=== PATIENT | female | born 1995 | race African-American/Black ===

== ENCOUNTER 2018-08-05 17:11 | Emergency (ER) | payer OTHER, SELFPAY ==
[2018-08-05 18:33] LABS: Hemoglobin 10.1 g/dL (12.0-16.0); Mean Corpuscular HGB CONC 28.7 g/dL (32.0-36.0); Mean Corpuscular Hemoglobin 18.9 pg (27.0-31.0); Mean Corpuscular Volume 65.8 fL (78.0-98.0); Mean Platelet Volume 11.2 fL (7.4-10.4); Platelet Count 411 thou/uL (130-400); RBC Distribution Width 17.8 % (11.5-14.5); Red Blood Cell (RBC) Count 5.36 mill/uL (4.20-5.40); White Blood Cell (WBC) Count 11.3 thou/uL (4.8-10.8)
[2018-08-05 18:55] LABS: #Lymphocytes 2.7 thou/uL (1.20-3.40); #Monocytes 0.8 thou/uL (0.11-0.59); #Neutrophils 7.7 thou/uL (1.40-6.50); %Basophils 0.3 % (0.0-1.0); %Eosinophils 0.2 % (0.0-10.0); %Monocytes 7.2 % (0.0-10.0); %Neutrophils 68.3 % (42.0-75.0); Hypochromia SLIGHT = 6-15 cells (100X) (0-5/hpf); MDiff Complete? YES; Microcytosis SLIGHT = 6-15 cells (100X) (0-5/hpf); Ovalocytes SLIGHT = 2-5 cells (100X) (0-1/hpf); Poikilocytosis SLIGHT = 6-15 cells (100X) (0-5/hpf); Schistocytes SLIGHT = 2-5 cells (100X) (0-1/hpf)
[2018-08-05 19:00] LABS: ALT (SGPT) Less than 7 U/L (8-55); AST (SGOT) 13 U/L (5-34); Albumin 4.6 g/dL (3.5-5.0); Alkaline Phosphatase 91 U/L (40-150); Anion Gap 13 mmol/L (10-20); BUN (Urea Nitrogen) 9 mg/dL (7.0-18.7); Bilirubin, Total 0.4 mg/dL (0.2-1.2); Calc. Creatinine Clearance 0 mL/min (70-130); Calcium 9.9 mg/dL (7.8-10.44); Carbon Dioxide 25 mmol/L (22-29); Chloride 102 mmol/L (98-107); Estimated GFR-MDRD Greater than 90; Globulin 4.4 g/dL (2.4-3.5); Glucose 93 mg/dL (70-105); Lipase 17 U/L (8-78); Potassium 3.8 mmol/L (3.5-5.1); Sodium 136 mmol/L (136-145)
[2018-08-05 19:44] LABS: Bilirubin Moderate (Negative); Blood, Urine Large (Negative); Clarity CLOUDY (Clear); Glucose, Urine (Dipstick) Negative (Negative); Leukocyte Moderate (Negative); Nitrite Negative (Negative); Protein, Urine (Dipstick) 100 mg/dL (Neg-Trace); Specific Gravity, Urine 1.027 (1.002-1.036); pH, Urine 6.5 (5.0-9.0)
[2018-08-05 19:46] LABS: Bacteria/HPF Rare-Few HPF (None Seen); Hyaline Casts/LPF 0-3 HYALINE CAST LPF (0-3 Hyaline); RBC/HPF GREATER THAN 50-TNTC HPF (0-3); Squamous Epithelial 0-3 HPF (0-3)
[2018-08-05 19:47] LABS: Pregnancy Test - Urine (BHCG) Negative (Negative); Pregu Control Background? CLEAR/WHITE (CLR/WHITE); Pregu Control Bar Appear? YES (CONTROL BAR); Specific Gravity 1.027 (1.002-1.036)
[2018-08-05] MEDS ORDERED: Acetaminophen 500 MG TAB ONE (20:26)
[2018-08-05] MEDS ORDERED: Ondansetron ODT 4 MG TAB ONE (20:26)
--- NOTE | 2018-08-05 21:16 | ULT ---
GALLBLADDER ULTRASOUND: 08/05/18 HISTORY: Right upper quadrant pain. Real time imaging of the right upper quadrant shows a normal appearing gallbladder. The common duct i s 2 mm. The visualized liver parenchyma shows no focal findings. Technologist reports a negative ultr asound Hutchins's sign. The pancreas region appears unremarkable. Right kidney is normal in size and nonobstructed. IMPRESSION: Unremarkable right upper quadrant ultrasound. POS: [facility]
== END 2018-08-05 21:58 | disposition home or self-care (01) ==
LOC: ERS 17:11
DX: N39.0 Urinary tract infection, site not specified (principal); R10.11 Right upper quadrant pain
CPT/HCPCS: 36415; 76705; 80053; 81003; 81015; 81025; 83690; 85025; Q0162